=== PATIENT | male | born 1955 | race Caucasian/White ===

== ENCOUNTER 2018-12-31 11:54 | Emergency (ER) | payer OTHER ==
[2018-12-31] MEDS ORDERED: Acetaminophen/oxyCODONE 325-5 MG Tab PO ONE (12:36)
[2018-12-31] MEDS ORDERED: Ondansetron 4 MG Tab.DIS PO ONE (12:36)
--- NOTE | 2018-12-31 12:44 | EDM.PDOC ---
ED HPI GENERAL MEDICAL PROBLEM - General Chief Complaint: ENT Problem Stated Complaint: FELL,MOUTH AND NOSE INJURY Time Seen by Provider: 12/31/18 12:19 Source of Information: Reports: Patient History Limitations: Reports: No Limitations - History of Present Illness INITIAL COMMENTS - FREE TEXT/NARRATIVE: 63-year-old male presents for injury sustained from a fall. Patient reports also he was coughing so hard that he "ran out of air" and fell to the floor. He is unsure if he passed out with this. He reports that he has been in [place] now for the last 2 weeks. He is originally from [place] but has been living in the [facility] and flew here about 2 weeks ago. He states now for the last week and a half he has been coughing. No hemoptysis. States that it is productive. He denies any fevers, chills or any chest pain. He denies any pain or swelling in his legs. Patient reports facial trauma after the fall. He states that he developed epistaxis from both nares and bleeding, bruising and swelling to the upper lip. He denies any headaches or neck pain. No abdominal pain. Reports that his tetanus is up-to-date. Nose Pain Score (Numeric/FACES): 8 Upper Oral/Mouth Pain Score (Numeric/FACES): 10 - Related Data Allergies Allergy/AdvReac Type Severity Reaction Status Date / Time No Known Allergies Allergy Verified 12/31/18 12:07 Home Meds: Home Meds Azithromycin [Zithromax] 500 mg PO DAILY #6 tab 12/31/18 [Rx] Escitalopram [Lexapro] 10 mg PO DAILY 12/31/18 [History] Simvastatin [Zocor] 40 mg PO DAILY 12/31/18 [History] Past Medical History Cardiovascular History: Reports: High Cholesterol, Hypertension Gastrointestinal History: Reports: Other (See Below) Other Gastrointestinal History: exploratory abdomen surgery Musculoskeletal History: Reports: Other (See Below) Other Musculoskeletal History: left ACL Psychiatric History: Reports: Anxiety - Past Surgical History Musculoskeletal Surgical History: Reports: Hip Replacement Social & Family History - Tobacco Use Smoking Status *Q: Current Every Day Smoker Years of Tobacco use: 50 Packs/Tins Daily: 1 - Caffeine Use Caffeine Use: Reports: None - Recreational Drug Use Recreational Drug Type: Reports: Marijuana/Hashish Other Recreational Drug Type: last used about 2 yrs ago ED ROS GENERAL - Review of Systems Review Of Systems: See Below Constitutional: Denies: Fever, Chills HEENT: Reports: Nosebleed, Other (Swelling and abrasion to the upper lip) Respiratory: Reports: Cough. Denies: Hemoptysis Cardiovascular: Reports: Syncope. Denies: Chest Pain, Edema GI/Abdominal: Denies: Abdominal Pain, Nausea, Vomiting Musculoskeletal: Denies: Neck Pain, Back Pain, Leg Pain Neurological: Reports: Syncope. Denies: Headache ED EXAM, GENERAL - Physical Exam Exam: See Below Exam Limited By: No Limitations General Appearance: Alert, WD/WN, No Apparent Distress Eye Exam: Bilateral Eye: EOMI, Normal Inspection, PERRL Ears: Normal External Exam, Normal Canal, Hearing Grossly Normal, Normal TMs Nose: Normal Inspection, Other (Dry blood to both nares). No: Nasal Tenderness , Nasal Deformity Throat/Mouth: Normal Inspection, Normal Voice, No Airway Compromise, Other ( Swelling and closed abrasions to the upper lip) Head: Normocephalic, Facial Swelling (Upper lip). No: Facial Tenderness, Sinus Tenderness Neck: Normal Inspection, Supple, Non-Tender, Full Range of Motion Respiratory/Chest: No Respiratory Distress, Lungs Clear, Normal Breath Sounds Cardiovascular: Normal Peripheral Pulses, No Murmur, Tachycardia Extremities: Normal Inspection Neurological: Alert, Oriented, Normal Cognition Psychiatric: Normal Affect, Normal Mood Skin Exam: Warm, Dry, Normal Color EKG INTERPRETATION EKG Date: 12/31/18 Time: 13:03 Rhythm: NSR Rate (Beats/Min): 80 [place]: Normal P-Wave: Present QRS: Normal ST-T: Normal QT: Normal EKG Interpretation Comments: First-degree AV block. Normal sinus rhythm at 80 bpm. QTC 432, within normal limits. Reviewed by myself and Dr. Mckeon Course - Vital Signs Last Recorded V/S: Last Vital Signs Temp 97.1 F 12/31/18 12:03 Pulse 111 H 12/31/18 12:03 Resp 20 12/31/18 12:03 BP 150/85 H 12/31/18 12:03 Pulse Ox 97 12/31/18 12:03 - Orders/Labs/Meds Orders: Active Orders 24 hr Category Date Time Status Cardiac Monitoring [RC] . DIRECTED Care 12/31/18 12:36 Ordered EKG Documentation Completion [RC] ASDIRECTED Care 12/31/18 12:36 Ordered Chest 2V [CR] Stat Exams 12/31/18 12:36 Ordered EKG 12 Lead [EK] Stat Ther 12/31/18 12:36 Ordered Labs: Laboratory Tests 12/31/18 12/31/18 12/31/18 Range/Units 12:53 12:53 12:53 WBC 8.05 (4.23-9.07) K/mm3 RBC 5.01 (4.63-6.08) M/mm3 Hgb 15.7 (13.7-17.5) gm/L Hct 46.9 (40.1-51.0) % MCV 93.6 H (79.0-92.2) fl MCH 31.3 (25.7-32.2) pg MCHC 33.5 (32.2-35.5) g/dl RDW Std Deviation 44.6 H (35.1-43.9) fL Plt Count 226 (163-337) K/mm3 MPV 10.1 (9.4-12.3) fl Neut % (Auto) 70.8 H (34.0-67.9) % Lymph % (Auto) 14.8 L (21.8-53.1) % [place] % (Auto) 12.3 H (5.3-12.2) % Eos % (Auto) 1.0 (0.8-7.0) Baso % (Auto) 0.6 (0.1-1.2) % Neut # (Auto) 5.70 H (1.78-5.38) K/mm3 Lymph # (Auto) 1.19 L (1.32-3.57) K/mm3 [place] # (Auto) 0.99 H (0.30-0.82) K/mm3 Eos # (Auto) 0.08 (0.04-0.54) K/mm3 Baso # (Auto) 0.05 (0.01-0.08) K/mm3 D-Dimer, Quantitative 0.36 (0.19-0.50) mg/L Sodium 141 (136-145) mEq/L Potassium 4.4 (3.5-5.1) mEq/L Chloride 104 (98-107) mEq/L Carbon Dioxide 26 (21-32) mEq/L Anion Gap 15.4 H (5-15) BUN 13 (7-18) mg/dL Creatinine 1.1 (0.7-1.3) mg/dL Est Cr Clr Drug Dosing 56.81 mL/min Estimated GFR (MDRD) > 60 (>60) mL/min BUN/Creatinine Ratio 11.8 L (14-18) Glucose 119 H (80-115) mg/dL Calcium 9.4 (8.5-10.1) mg/dL Total Bilirubin 1.0 (0.2-1.0) mg/dL AST 22 (15-37) U/L ALT 20 (16-63) U/L Alkaline Phosphatase 72 (46-116) U/L Troponin I < 0.017 (0.00-0.056) ng/mL C-Reactive Protein 1.1 H* (<1.0) mg/dL Total Protein 7.1 (6.4-8.2) g/dl Albumin 3.5 (3.4-5.0) g/dl Globulin 3.6 gm/dL Albumin/Globulin Ratio 1.0 (1-2) Meds: Medications Discontinued Medications Generic Name Dose Route Start Last Admin Trade Name Freq PRN Reason Stop Dose Admin Ondansetron HCl 4 mg 12/31/18 12:36 12/31/18 12:56 Zofran Odt PO 12/31/18 12:37 4 mg ONETIME ONE Administration Oxycodone/Acetaminophen 1 tab 12/31/18 12:36 12/31/18 12:56 Percocet 325-5 Mg PO 12/31/18 12:37 1 tab ONETIME ONE Administration - Radiology Interpretation Free Text/Narrative:: chest xray shows no acute intrathoracic process. old healed left sided rib fractures and plated ribs. formal radiology read pending. - Re-Assessments/Exams Free Text/Narrative Re-Assessment/Exam: 12/31/18 13:57 I reviewed the labs, EKG and imaging with the patient. I will treat him for bronchitis. Discharge instructions document. Departure - Departure Time of Disposition: 13:57 Disposition: Home, Self-Care 01 Condition: Fair Clinical Impression: Fall, Abrasion, Bronchitis - Discharge Information *PRESCRIPTION DRUG MONITORING PROGRAM REVIEWED*: No *COPY OF PRESCRIPTION DRUG MONITORING REPORT IN PATIENT SAGE: No Prescriptions: Azithromycin [Zithromax] 500 mg PO DAILY #6 tab Referrals: PCP,Not In Area [Primary Care Provider] - Forms: ED Department Discharge Additional Instructions: Take the azithromycin as prescribed. 2 tabs on day 1 followed by 1 Days through for through 5 for 5 Days of Antibiotics Total. This Medication Does Stay in your System for 10 Days. Make sure you are Drinking Plenty of Fluids and Getting Plenty of Rest. You May Take Qazc-Ryx-Uosfunw Tylenol or Motrin As Needed for Additional Symptom Relief. You May Also Try an Antihistamine If Your Cough Is Very Wet and Productive. This Will Help Dry out your Cough. Follow-Up with Family Medicine If Not Much Better in 2 Weeks May wash the wound with gentle soap and water. Please Return to the ER if your Symptoms Change or Worsen. - My Orders Last 24 Hours: My Active Orders 12/31/18 12:36 Cardiac Monitoring [RC] . DIRECTED EKG Documentation Completion [RC] ASDIRECTED Chest 2V [CR] Stat EKG 12 Lead [EK] Stat - Assessment/Plan Last 24 Hours: My Active Orders 12/31/18 12:36 Cardiac Monitoring [RC] . DIRECTED EKG Documentation Completion [RC] ASDIRECTED Chest 2V [CR] Stat EKG 12 Lead [EK] Stat
--- NOTE | 2018-12-31 14:41 | CR ---
Chest: Two views of the chest are obtained. Comparison: No prior chest x-ray. Orthopedic hardware is seen within 3 left ribs. Old healed fracture is noted within the 4th left rib. Lungs show no acute parenchymal change. Slight pleural thickening is seen within the lateral left costophrenic angle which is believed to be chronic. Heart size is normal. Mild tortuosity of the thoracic aorta is seen. Minimal scoliosis is noted within the spine. Impression: 1. Old bony trauma on the left side with chronic pleural thickening. 2. Nothing acute is seen on two-view chest x-ray. Diagnostic code #2
== END 2018-12-31 14:05 | disposition home or self-care (01) ==
LOC: JD.ED 11:54
DX: S00.511A Abrasion of lip, initial encounter (principal); J40 Bronchitis, not specified as acute or chronic; R04.0 Epistaxis; I10 Essential (primary) hypertension; E78.00 Pure hypercholesterolemia, unspecified; F41.9 Anxiety disorder, unspecified; F17.210 Nicotine dependence, cigarettes, uncomplicated; Z79.899 Other long term (current) drug therapy; W19.XXXA Unspecified fall, initial encounter
CPT/HCPCS: 36415; 71046; 80053; 84484; 85025; 85379; 86140; 93005; 99284; A9270